=== PATIENT | female | born 1950 | race Caucasian/White ===

== ENCOUNTER 2019-03-02 03:36 | Emergency (ER) | payer OTHER ==
[~2019-03-02] VITALS: Ht 172.7 cm; Wt 144.7 kg
[2019-03-02 03:42] VITALS: Ht 172.7 cm; Wt 144.7 kg
--- NOTE | 2019-03-02 05:29 | ERD ---
ER Documentation Chief Complaint Chief Complaint " I cant Pee'. 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 HPI 68-year-old male with history of hypertension, atrial fibrillation, urinary retention presents to the emergency department complaining of urinary retention since 5 PM yesterday. He also reports some mild pain to the penis. He reports dysuria. He reports bladder fullness. He denies any back pain, fevers, abdominal pain, or other symptoms at this time. Symptoms are constant, worsening, moderate in severity. No other symptoms reported currently. ROS All systems reviewed and are negative except as per history of present illness. Medications Home Meds Active Scripts Doxycycline Hyclate* (Doxycycline Hyclate*) 100 Mg Tablet.dr, 100 MG PO BID for 10 Days, TAB Prov:DANIEL WARE PA-C 03/02/19 Allergies Allergies: Coded Allergies: No Known Allergy (Unverified , 03/02/19) PMhx/Soc Medical and Surgical Hx: pt denies Medical Hx FmHx Family History: No diabetes Physical Exam Vitals Vital Signs Date Temp Pulse Resp B/P (MAP) Pulse Ox O2 O2 Flow FiO2 Time Delivery Rate 03/02/19 97.5 95 20 120/85 100 Room Air 06:09 (97) 03/02/19 97.5 85 17 169/102 97 03:42 (124) Physical Exam Const: No acute distress Head: Atraumatic Eyes: Normal Conjunctiva ENT: Normal External Ears, Nose and Mouth. Neck: Full range of motion. No meningismus. Resp: Clear to auscultation bilaterally Cardio: Regular rate and rhythm, no murmurs Abd: Soft, non tender, non distended. Normal bowel sounds Skin: No petechiae or rashes Back: No midline or flank tenderness Ext: No cyanosis, or edema Neur: Awake and alert Psych: Normal Mood and Affect Results 24 hrs Laboratory Tests Test 03/02/19 05:33 Bedside Urine pH (LAB) 5.0 Bedside Urine Protein (LAB) Negative Bedside Urine Glucose (UA) Negative Bedside Urine Ketones (LAB) Negative Bedside Urine Blood 2+ Bedside Urine Nitrite (LAB) Negative Bedside Urine Leukocyte Esterase (L Negative Procedures/MDM 68-year-old male presents to the emergency department complaining of urinary retention. Gaines catheter was inserted and approximately 1 L of urine was obtained. Urine dip in the department revealed no evidence of urinary tract i nfection. ALANNA exam was deferred at this time to prevent spreading of possible acute prostatitis. History, physical examination, work-up most consistent with urinary retention with unclear etiology. No evidence of acute surgical abdomen, sepsis, pyelonephritis or other emergencies. Patient stable and appropriate for discharge and further outpatient follow-up with urologist. He was given resources to do so. He was advised to return here immediately for any new or worsening or concerning symptoms. Patient's blood pressure was elevated (>120/80) but appears stable without evidence of hypertension emergency or urgency. The patient is to follow-up and pursue outpatient monitoring and therapy with their primary care physician within 1 week and return immediately if they have any new, worsening, or concerning symptoms. No evidence of life-threatening pathology at time of discharge. Pt/family in agreement with discharge plan/diagnosis. Pt/family advised to return immediately with any new or worsening symptoms. Follow-up with primary care physician within the next 1-2 days. Disclaimer: Inadvertent spelling and grammatical errors are likely due to EHR/dictation software use and do not reflect on the overall quality of patient care. Also, please note that the electronic time recorded on this note does not necessarily reflect the actual time of the patient encounter. Departure Diagnosis: Primary Impression: Urinary retention Condition: Fair Patient Instructions: Urinary Retention, Male Additional Instructions: Follow up with your PCP within the next 1-3 days for a repeat evaluation. If you require a referral to a specialist, your Primary Care Provider may be able to provide this for you. In most patient cases, a referral is not required. If you have further questions regarding this matter, please ask your Primary Care Provider. Return the the emergency department immediately if symptoms worsen or change. If you have any questions regarding medications, ask your pharmacist or us before you leave. If any adverse reactions, occur while taking your medications, discontinue the treatment and return to the emergency department immediately. If any new or worsening symptoms, uncontrolled fevers, or other unexplained symptoms occur, return to the emergency department immediately. Take your medications as directed, and complete the entire course of treatment. DANIEL WARE PA-C Mar 02, 2019 05:29
[2019-03-02] MEDS ORDERED: DOXY100T20 PO (05:44)
[2019-03-02 06:09] VITALS: BP 120/85; PULSE 95; RESP 20
== END 2019-03-02 06:48 | disposition home or self-care (01) ==
LOC: FTE 03:36
DX: R33.9 Retention of urine, unspecified (principal); I10 Essential (primary) hypertension
CPT/HCPCS: 81003

== ENCOUNTER 2019-03-10 23:44 | Emergency (ER) | payer OTHER ==
[~2019-03-10] VITALS: Ht 175.3 cm; Wt 141.5 kg
[~2019-03-10 23:44] MED LIST: DOXY100T20 PO
[2019-03-10 23:54] VITALS: Ht 175.3 cm; Wt 141.5 kg
--- NOTE | 2019-03-11 00:46 | ERD ---
ER Documentation Chief Complaint Chief Complaint clogged indwelling cath x 24 hrs; just got inserted yesterday HPI This is a 68-year-old male with a history of hypertension, BPH and previous urinary retention who presents to the ER for evaluation of inability to urinate. The patient did have a Gaines catheter placed in approximately 6 days ago. He states he went to a urologist, Dr. Marquis and [facility] today. He states that the urologist remove the Gaines catheter and he had no problems urinating immediately afterwards however as the day progressed the patient got progressively worse and could not urinate. The patient is here for pain in the lower portion of the abdomen. He also states that he is constipated and has been taking Colace with minimal relief ROS All systems reviewed and are negative except as per history of present illness. Medications Home Meds Active Scripts Doxycycline Hyclate* (Doxycycline Hyclate*) 100 Mg Tablet., 100 MG PO BID for 10 Days, TAB Prov:DANIEL WARE PA-C 03/02/19 Allergies Allergies: Coded Allergies: No Known Allergy (Unverified , 03/02/19) PMhx/Soc Hx Cardiac Disorders: Yes (Afib) Hx Miscellaneous Medical Probl: Yes (prostate problem, UTI) Hx Alcohol Use: No Hx Substance Use: No Hx Tobacco Use: No Smoking Status: Never smoker Physical Exam Vitals Vital Signs Date Temp Pulse Resp B/P (MAP) Pulse Ox O2 O2 Flow FiO2 Time Delivery Rate 03/10/19 97.1 95 20 116/66 97 23:54 (83) Physical Exam INITIAL VITAL SIGNS: Reviewed by me GENERAL: The patient is well developed and appropriate for usual state of health in no apparent distress HEENT: Pupils equal, round, and reactive to light. EOMI. There is no scleral icterus. NECK: C-spine is soft and supple, there is no meningismus. There is no cervical lymphadenopathy. LUNGS: Clear to auscultation bilaterally. There are no rales, wheezes or rhonchi. HEART: Regular rate and rhythm, no murmurs, clicks, rubs or gallops. ABDOMEN: Suprapubic tenderness to palpation, otherwise soft, non-tender, non- distended. There are bowel sounds in all four quadrants. No rebound or guarding. EXTREMITIES: There is no peripheral cyanosis or edema. No focal swelling or erythema. NEUROLOGICAL: The patient moves all four extremities with 5/5 strength. Cranial nerves II - XII are intact. Normal gait. Alert and oriented SKIN: There is no apparent rash or petechiae. HEME/LYMPHATIC: There is no evidence of excessive bruising or lymphedema. PSYCHIATRIC: The patient does not appear anxious or depressed. Procedures/MDM This 68-year-old male presents to the ER for evaluation of urinary retention. He does have a history of BPH and did see urologist Dr. Marquis in [place]. The patient had a his indwelling catheter removed earlier today and on my exam was tender to palpation. We did reinsert a Gaines catheter and the patient has 600 cc of urine out. He is on antibiotics for previous urinary tract infection. The patient was advised to follow-up with his urologist and will be given a prescription for magnesium citrate for constipation as well. Departure Diagnosis: Primary Impression: Acute urinary retention Additional Impression: Constipation Condition: BRANDON Guillory DO Mar 11, 2019 00:46
[2019-03-11] MEDS ORDERED: [UNRECOGNIZED DRUG - CODE] PO (00:47)
[2019-03-11 01:01] VITALS: BP 135/99; PULSE 76; RESP 20
== END 2019-03-11 01:03 | disposition home or self-care (01) ==
LOC: E/R 23:44 → EDSEX 23:44 → E/R 03-11 01:03
DX: K59.00 Constipation, unspecified (principal); I10 Essential (primary) hypertension

== ENCOUNTER 2019-03-23 02:38 | Emergency (ER) | payer OTHER ==
[~2019-03-23] VITALS: Ht 175.3 cm; Wt 142.9 kg
[~2019-03-23 02:38] MED LIST changes: +ACET500C5 PO; +APIX5TAB ORAL; +CIPR500T4 PO; +DIGO125T ORAL; +FINA5TAB4 ORAL; +LACT20SO2 PO; +LOSA100T15 ORAL; +TAMS-14 PO
[2019-03-23 02:41] VITALS: Ht 175.3 cm; Wt 142.9 kg
--- NOTE | 2019-03-23 03:20 | ERD ---
ER Documentation Chief Complaint Chief Complaint states leaking lopez cath x 30 minutes HPI This is a 68-year-old male who presents here in the emergency department with complaints of Lopez catheter leaking that started 30 minutes ago. Stated that he was at urology clinic when they inserted a Lopez catheter. Stated that the Lopez catheter at the urology clinic was inserted by a registered nurse. Stated that he was just an antibiotic need ciprofloxacin. Stated that he just finished his ciprofloxacin yesterday. Denies headache, head injury, loss of consciousness, dizziness, neck pain, neck stiffness, throat pain, difficulty swallowing, difficulty breathing lying flat, shoulder pain, chest pain, back pain, abdominal pain, nausea, vomiting, constipation, diarrhea, loss of bowel and bladder control, trauma, injury, fa lls, difficulty walking due to pain, numbness or tingling sensation, calf pain, recent travel, recent major surgery in the last 3 weeks, calf pain, recent long travel, recent exposure to any illness, recent antibiotic use in the last 3 months, fever, chills, seizures. ROS All systems reviewed and are negative except as per history of present illness. Medications Home Meds Active Scripts Acetaminophen* (Tylophen*) 500 Mg Capsule, 1 CAP PO Q6H PRN for PAIN AND OR ELEVATED TEMP, #20 CAP Prov:CARY SZYMANSKI Farooq 03/23/19 Doxycycline Hyclate* (Doxycycline Hyclate*) 100 Mg Tablet.dr, 100 MG PO BID for 10 Days, TAB Prov:CARY SZYMANSKI F 03/23/19 Lactulose* (Lactulose*) 20 Gm/30 Ml Solution, 20 GM PO Q6H for CONSTIPATION, #240 ML Prov:LISA FRANCIS MD 03/15/19 Reported Medications Tamsulosin Hcl* (Flomax*) 0.4 Mg Cap.er.24h, 0.4 MG PO BID, CAP 03/15/19 Apixaban* (Eliquis*) 5 Mg Tablet, 5 MG ORAL BID 03/15/19 Finasteride* (Finasteride*) 5 Mg Tablet, 1 TAB ORAL DAILY 03/15/19 Losartan Potassium* (Losartan Potassium*) 100 Mg Tablet, 1 TAB ORAL DAILY 03/15/19 Digoxin* (Digitek*) 125 Mcg Tablet, 1 TAB ORAL QHS 03/15/19 Discontinued Scripts Ciprofloxacin Hcl* (Ciprofloxacin Hcl*) 500 Mg Tablet, 500 MG PO BID for 7 Days, TAB Prov:LISA FRANCIS MD 03/15/19 Allergies Allergies: Coded Allergies: No Known Allergy (Unverified , 03/31/19) PMhx/Soc History of Surgery: Yes (benign abdominal mass removal, lumbar spine fusion) Hx Cardiac Disorders: Yes (Afib) Hx Miscellaneous Medical Probl: Yes (prostate problem, UTI) Hx Alcohol Use: No Hx Substance Use: No Hx Tobacco Use: No Physical Exam Vitals Physical Exam Const: No acute distress Head: Atraumatic Eyes: Normal Conjunctiva ENT: Normal External Ears, Nose and Mouth. Neck: Full range of motion. No meningismus. Resp: Clear to auscultation bilaterally Cardio: Regular rate and rhythm, no murmurs Abd: Soft, non tender, non distended. Normal bowel sounds. : No CVA tenderness. Lopez catheter connected to leg bag. No bleeding. Skin: No petechiae or rashes Back: No midline or flank tenderness Ext: No cyanosis, or edema Neur: Awake and alert. No neurological deficits. Psych: Normal Mood and Affect Results 24 hrs Laboratory Tests Test 03/23/19 03:58 Urine Color SHEBA Urine Clarity SLIGHTLY CLOUDY Urine pH 5.0 Urine Specific [place] 1.024 Urine Ketones NEGATIVE mg/dL Urine Nitrite NEGATIVE mg/dL Urine Bilirubin NEGATIVE mg/dL Urine Urobilinogen 2+ mg/dL Urine Leukocyte Esterase 2+ Keo/ul Urine Microscopic RBC > 182 /HPF Urine Microscopic WBC 118 /HPF Urine Squamous Epithelial Cells FEW /HPF Urine Amorphous Crystals FEW /HPF Urine Bacteria FEW /HPF Urine Mucus FEW /HPF Urine Hemoglobin 3+ mg/dL Urine Glucose NEGATIVE mg/dL Urine Total Protein 1+ mg/dl Current Medications Medications Dose Sig/Zaira Start Time Status Last (Trade) Ordered Route PRN Stop Time Admin Dose Reason Admin Ceftriaxone 1 gm ONCE ONCE 03/23/19 DC 03/23/19 Sodium IM 05:00 03/23/19 04:46 (Rocephin) 05:01 Procedures/MDM Diagnostic tests: Urinalysis: UTI. Culture urine: Sent. Treatment: Discontinued Lopez catheter. Inserted no Lopez catheter. Lopez catheter was connected to leg bag. Ceftriaxone IM. Re-evaluation: No Lopez catheter leak. Good urine flow. No bleeding. No discharge. Differential diagnosis I have low suspicion for renal failure, nephrolithiasis, obstructing kidney stone. Final diagnosis: UTI. Prescription: Doxycycline. Tylenol. Follow-up with PCP in the next 24-48 hours. Follow-up with urologist in the next 24 to 48 hours. Come back here in the emergency department for any new symptoms or any worsening symptoms. All questions and concerns were answered. Patient and family members verbalized understanding and agreed with plan of care. Hemodynamically stable on discharge. Departure Diagnosis: Primary Impression: Encounter for urinary catheter Additional Impressions: Urinary catheter (Lopez) change required UTI (urinary tract infection) Condition: Stable Additional Instructions: Follow-up with PCP in the next 24-48 hours. Follow-up with urologist in the next 24 to 48 hours. Come back here in the emergency department for any new symptoms or any worsening symptoms. CARY SZYMANSKI Mar 23, 2019 03:20
[2019-03-23] MEDS ORDERED: CEFTRIAXONE 1 GM INJ IM ONE (05:00)
== END 2019-03-23 04:57 | disposition home or self-care (01) ==
LOC: FTE 02:38
DX: N39.0 Urinary tract infection, site not specified (principal); Z79.01 Long term (current) use of anticoagulants
CPT/HCPCS: 51702; 81001; 87086; 96372; 99284; J0696

== ENCOUNTER 2019-03-31 12:44 | Emergency (ER) | payer OTHER, MEDICARE ==
[~2019-03-31] VITALS: Ht 175.3 cm; Wt 141.7 kg
[2019-03-31 12:55] VITALS: Ht 175.3 cm; Wt 141.7 kg
--- NOTE | 2019-03-31 13:49 | EN ---
Date/Time of Note Date/Time of Note DATE: 03/31/19 TIME: 13:49 ER Progress Note 68-year-old male, with history of atrial fibrillation, BPH with indwelling Gaiens catheter and CHF, presents the emergency department, complaining of right lower extremity edema and mild shortness of breath but no chest pain. Medical screening exam initiated and labs/imaging test ordered. Patient will be seen by another provider. ISAI ROBISON MD Mar 31, 2019 13:49
--- NOTE | 2019-03-31 16:00 | ERD ---
ER Documentation Chief Complaint Chief Complaint right leg swelling x 1week; sob HPI This is a 68-year-old morbidly obese man with chronic peripheral edema and stasis dermatitis presenting with a few days of right dorsal foot edema, he was seen and evaluated 2 days ago at [facility] and a full work-up including Doppler ultrasound of the right lower extremity was negative. Patient did not have a DVT and he denies redness, no fevers or chills, no trauma or direct injury to the foot or ankle. Patient uses Lasix daily. He denies chest pain or shortness of breath. ROS All systems reviewed and are negative except as per history of present illness. Medications Home Meds Active Scripts Acetaminophen* (Tylophen*) 500 Mg Capsule, 1 CAP PO Q6H PRN for PAIN AND OR ELEVATED TEMP, #20 CAP Prov:JOANNILACARY GUERRA 03/23/19 Doxycycline Hyclate* (Doxycycline Hyclate*) 100 Mg Tablet.dr, 100 MG PO BID for 10 Days, TAB Prov:CARY SZYMANSKI 03/23/19 Lactulose* (Lactulose*) 20 Gm/30 Ml Solution, 20 GM PO Q6H for CONSTIPATION, # 240 ML Prov:LISA FRANCIS MD 03/15/19 Reported Medications Tamsulosin Hcl* (Flomax*) 0.4 Mg Cap.er.24h, 0.4 MG PO BID, CAP 03/15/19 Apixaban* (Eliquis*) 5 Mg Tablet, 5 MG ORAL BID 03/15/19 Finasteride* (Finasteride*) 5 Mg Tablet, 1 TAB ORAL DAILY 03/15/19 Losartan Potassium* (Losartan Potassium*) 100 Mg Tablet, 1 TAB ORAL DAILY 03/15/19 Digoxin* (Digitek*) 125 Mcg Tablet, 1 TAB ORAL QHS 03/15/19 Discontinued Scripts Ciprofloxacin Hcl* (Ciprofloxacin Hcl*) 500 Mg Tablet, 500 MG PO BID for 7 Days, TAB Prov:LISA FRANCIS MD 03/15/19 Allergies Allergies: Coded Allergies: No Known Allergy (Unverified , 03/31/19) PMhx/Soc Hypertension, BPH, atrial fibrillation, morbid obesity, stasis dermatitis, chronic peripheral edema History of Surgery: Yes (benign abdominal mass removal, lumbar spine fusion) Anesthesia Reaction: No Hx Neurological Disorder: No Hx Respiratory Disorders: No Hx Cardiac Disorders: Yes (Afib) Hx Psychiatric Problems: No Hx Miscellaneous Medical Probl: Yes (prostate problem, UTI) Hx Alcohol Use: No Hx Substance Use: No Hx Tobacco Use: No Smoking Status: Never smoker FmHx Family History: No diabetes Physical Exam Vitals Vital Signs Date Temp Pulse Resp B/P (MAP) Pulse Ox O2 O2 Flow FiO2 Time Delivery Rate 03/31/19 97.9 90 18 129/76 99 Room Air 16:37 (93) 03/31/19 99 18 126/78 99 Room Air 15:59 (94) 03/31/19 97.7 85 20 120/77 96 12:55 (91) Physical Exam Const: No acute distress, well-developed well-nourished, afebrile Resp: Clear to auscultation bilaterally Cardio: Regular rate and rhythm, no murmurs Skin: No petechiae or rashes, chronic xerosis cutis of the lower extremities bilaterally Ext: No cyanosis, 3+ pitting edema in the lower extremities bilaterally, calves symmetrical, distal pulses equal bilateral Neur: Awake and alert x3, no focal deficits or facial asymmetry Psych: Normal Mood and Affect Result Diagram: 03/31/19 1417 03/31/19 1417 Results 24 hrs Laboratory Tests Test 03/31/19 14:17 White Blood Count 6.6 10^3/ul Red Blood Count 5.20 10^6/ul Hemoglobin 14.9 g/dl Hematocrit 45.3 % Mean Corpuscular Volume 87.1 fl Mean Corpuscular Hemoglobin 28.7 pg Mean Corpuscular Hemoglobin Concent 32.9 g/dl Red Cell Distribution Width 13.6 % Platelet Count 200 10^3/UL Mean Platelet Volume 9.6 fl Immature Granulocytes % 0.300 % Neutrophils % 69.0 % Lymphocytes % 20.5 % Monocytes % 6.9 % Eosinophils % 2.7 % Basophils % 0.6 % Nucleated Red Blood Cells % 0.0 /100WBC Immature Granulocytes # 0.020 10^3/ul Neutrophils # 4.6 10^3/ul Lymphocytes # 1.4 10^3/ul Monocytes # 0.5 10^3/ul Eosinophils # 0.2 10^3/ul Basophils # 0.0 10^3/ul Nucleated Red Blood Cells # 0.0 10^3/ul Sodium Level 137 mmol/L Potassium Level 4.1 mmol/L Chloride Level 104 mmol/L Carbon Dioxide Level 30 mmol/L Anion Gap 3 Blood Urea Nitrogen 16 mg/dl Creatinine 0.58 mg/dl Est Glomerular Filtrat Rate mL/min > 60 mL/min Glucose Level 95 mg/dl Calcium Level 9.6 mg/dl Total Bilirubin 1.3 mg/dl Direct Bilirubin 0.00 mg/dl Indirect Bilirubin 1.3 mg/dl Aspartate Amino Transf (AST/SGOT) 21 IU/L Alanine Aminotransferase (ALT/SGPT) 25 IU/L Alkaline Phosphatase 106 IU/L Troponin I < 0.012 ng/ml B-Type Natriuretic Peptide 749 PG/ML Total Protein 7.4 g/dl Albumin 4.0 g/dl Globulin 3.40 g/dl Albumin/Globulin Ratio 1.17 Procedures/MDM IV line was established patient was placed on quality assurance monitor final rhythm strip revealed a sinus rhythm at about 80 bpm with upright P and T waves. Patient was afebrile EKG performed, read by me revealed an atrial fibrillation rate controlled at 89 bpm, normal axis, narrow QRS complex, no concerning ST elevations or depressions noted. CBC and electrolytes are normal, liver function tests are normal, troponin was negative, BNP elevated. Patient has no shortness of breath or dyspnea on exertion, and his lung sounds are clear and he has no signs or symptoms of CHF. He looks well and will be discharged to follow-up with PMD, I spoke to his PMD Dr. Jacobsen who agreed to follow-up with him in his office early next week. Patient does have chronic BPH and urinary obstruction and had a Gaines catheter replaced 2 days ago Differential diagnoses considered, included but not limited to acute coronary syndrome, pulmonary embolism, aortic dissection, abdominal aortic aneurysm, sepsis, stroke, meningitis, encephalitis, pneumonia, appendicitis, cholecystitis, bowel obstruction, pyelonephritis, nephrolithiasis, cystitis, as well as metabolic, hematologic, and electrolyte abnormalities. As well as ab scess, cellulitis, fractures, and dislocations. Patient feels much better at this time, and vital signs are normal, symptoms have improved. I did give strict instructions to return to the ED if symptoms continue or worsen, patient will otherwise follow-up with primary care physician. Patient understood instructions and agreed to plan. Disclaimer: Inadvertent spelling and grammatical errors are likely due to EHR/dictation software use and do not reflect on the overall quality of patient care. Also, please note that the electronic time recorded on this note does not necessarily reflect the actual time of the patient encounter. Departure Diagnosis: Primary Impression: Peripheral edema Condition: PEE Hunter MD Mar 31, 2019 16:00
[2019-03-31 16:37] VITALS: BP 129/76; PULSE 90; RESP 18
== END 2019-03-31 17:26 | disposition home or self-care (01) ==
LOC: E/R 12:44
DX: R60.0 Localized edema (principal); I10 Essential (primary) hypertension; E66.01 Morbid (severe) obesity due to excess calories; Z79.01 Long term (current) use of anticoagulants; Z68.42 Body mass index [BMI] 45.0-49.9, adult
CPT/HCPCS: 80053; 83880; 84484; 85025; 93005; 93970

== ENCOUNTER 2019-04-11 20:45 | Emergency (ER) | payer MEDICARE, OTHER ==
[~2019-04-11 20:45] MED LIST changes: -CIPR500T4 PO
== END 2019-04-11 20:49 | disposition left against medical advice (07) ==
LOC: FTE 20:45
DX: Z53.21 Procedure and treatment not carried out due to patient leaving prior to being seen by health care provider (principal)

== ENCOUNTER 2019-05-15 10:14 | Emergency (ER) | payer MEDICARE, OTHER ==
[~2019-05-15] VITALS: Ht 175.3 cm; Wt 136.4 kg
[~2019-05-15 10:14] MED LIST changes: +CEPH-443 PO; +DOXY-214 PO; -DOXY100T20 PO; +DYAZIDE ORAL; +MECL12.574 PO
[2019-05-15 10:20] VITALS: Ht 175.3 cm; Wt 136.4 kg
[2019-05-15] MEDS ORDERED: SOD CHLORIDE 0.9% 500 ML IV STA (10:34)
[2019-05-15 12:50] VITALS: BP 102/69; PULSE 70; RESP 20
== END 2019-05-15 12:55 | disposition home or self-care (01) ==
LOC: E/R 10:14
DX: R42 Dizziness and giddiness (principal); I10 Essential (primary) hypertension
CPT/HCPCS: 36415; 70450; 80048; 85025; 85610; 85730; 93005; 99285; J7040

== ENCOUNTER 2019-05-18 21:45 | Emergency (ER) | payer MEDICARE, OTHER ==
[~2019-05-18] VITALS: Ht 175.3 cm; Wt 134.2 kg
[~2019-05-18 21:45] MED LIST changes: -LACT20SO2 PO
[2019-05-18 21:47] VITALS: Ht 175.3 cm; Wt 134.2 kg
[2019-05-19 03:40] VITALS: BP 112/77; PULSE 85; RESP 16
== END 2019-05-19 04:06 | disposition home or self-care (01) ==
LOC: E/R 21:45
DX: T83.091A Other mechanical complication of indwelling urethral catheter, initial encounter (principal); N30.01 Acute cystitis with hematuria; I10 Essential (primary) hypertension; Y73.2 Prosthetic and other implants, materials and accessory gastroenterology and urology devices associated with adverse incidents; Z79.01 Long term (current) use of anticoagulants
CPT/HCPCS: 80053; 81001; 83690; 85025